=== PATIENT | male | born 1980 | race Caucasian/White ===

== ENCOUNTER 2020-01-05 19:56 | Inpatient (IN) | payer BC ==
[2020-01-05] MEDS ORDERED: ONDANSETRON 4 MG/2 ML VIAL ONE (20:23)
[2020-01-05] MEDS ORDERED: FENTANYL CITR 100 MCG/2 ML ONE ×2 (20:23→20:56)
[2020-01-05 20:40] LABS: Absolute Lymphocytes (CBC) 2.9 K/uL (0.7-4.9); Basophils % 0.7 % (0-1.3); Hematocrit 41.9 % (39.6-49.0); MPV 8.3 fL (7.6-11.3); RBC Red Blood Cell Count 4.86 M/uL (4.33-5.43)
[2020-01-05] MEDS ORDERED: PROMETHAZINE INJ 25 MG/ML AMP ONE (20:55)
[2020-01-05] MEDS ORDERED: NA CHLORIDE 0.9% 1,000 ML ONE (20:56)
[2020-01-05] MEDS ORDERED: HYDROMORPHONE HCL 1 MG/ML INJ ONE (21:28)
--- NOTE | 2020-01-05 21:35 | EDPHYS ---
Physician Documentation [facility] Name: Gustabo Walker Age: 39 yrs Sex: Male : 1980 Arrival Date: 01/05/2020 Time: 19:59 Bed 30 Private MD: ED Physician Max Blake HPI: 01/05 21:14 This 39 yrs old Male presents to ER via Wheelchair with complaints of abdominal pain. tw4 21:15 The patient presents with abdominal pain. Onset: The symptoms/episode began/occurred 5 tw4 year(s) ago, and became worse today. The symptoms do not radiate. Associated signs and symptoms: Pertinent positives: nausea, vomiting, Pertinent negatives:. The symptoms are described as sharp. Modifying factors: The symptoms are alleviated by nothing, the symptoms are aggravated by alcohol. The patient has not experienced similar symptoms in the past. Historical: - Allergies: 20:05 Morphine; jd3 20:05 Sulfa (Sulfonamide Antibiotics); jd3 - Home Meds: 20:05 None [Active]; jd3 - PMHx: 20:05 None; jd3 - PSHx: 20:05 None; jd3 - Immunization history:: Adult Immunizations up to date. - Social history:: Smoking status: Reported history of juuling and/or vaping. ROS: 21:15 Constitutional: Negative for fever, chills, and weight loss, Eyes: Negative for injury, tw4 pain, redness, and discharge, Cardiovascular: Negative for chest pain, palpitations, and edema, Respiratory: Negative for shortness of breath, cough, wheezing, and pleuritic chest pain, Back: Negative for injury and pain, MS/Extremity: Negative for injury and deformity, Skin: Negative for injury, rash, and discoloration, Neuro: Negative for headache, weakness, numbness, tingling, and seizure. 21:15 Abdomen/GI: Positive for abdominal pain, nausea and vomiting, nausea, vomiting, Negative for diarrhea, anorexia, dysphagia, hematemesis, black/tarry stool, rectal pain, rectal bleeding, bowel incontinence. Exam: 21:15 Head/Face: Normocephalic, atraumatic. Chest/axilla: Normal chest wall appearance and tw4 motion. Nontender with no deformity. No lesions are appreciated. Cardiovascular: Regular rate and rhythm with a normal S1 and S2. No gallops, murmurs, or rubs. Normal PMI, no JVD. No pulse deficits. Respiratory: Lungs have equal breath sounds bilaterally, clear to auscultation and percussion. No rales, rhonchi or wheezes noted. No increased work of breathing, no retractions or nasal flaring. 21:15 MS/ Extremity: Pulses equal, no cyanosis. Neurovascular intact. Full, normal range of motion. Neuro: Awake and alert, GCS 15, oriented to person, place, time, and situation. Cranial nerves II-XII grossly intact. Motor strength 5/5 in all extremities. Sensory grossly intact. Cerebellar exam normal. Normal gait. 21:15 Constitutional: The patient appears in obvious distress, severely distressed. 21:15 Abdomen/GI: Inspection: abdomen appears normal, Bowel sounds: diminished, Palpation: moderate abdominal tenderness, in the epigastric area. Vital Signs: 20:05 BP 158 / 85; Pulse 87; Resp 22 S; Temp 98.3(O); Pulse Ox 100% on R/A; Weight 97.52 kg jd3 (R); Height 6 ft. 1 in. (185.42 cm) (R); Pain 10/10; 21:00 BP 130 / 91; Pulse 83; Resp 24; Pulse Ox 100% on R/A; vc 21:59 BP 135 / 77; Pulse 71; Resp 20; Pulse Ox 97% on R/A; vc 23:13 Pulse 77; Resp 18; Pulse Ox 96% on R/A; mg2 23:56 BP 147 / 74; Pulse 69; Resp 18; Pulse Ox 98% on R/A; mg2 00:30 BP 123 / 93; Pulse 63; Resp 17 S; Pulse Ox 97% on R/A; jd3 01/05 20:05 Body Mass Index 28.37 (97.52 kg, 185.42 cm) [facility] MDM: 01/05 20:03 Patient medically screened. tw4 23:08 Differential diagnosis: cholecystitis, Cholelithiasis, gastritis, GI Bleed, Hepatitis, tw4 pancreatitis, Peptic Ulcer Disease, Perf. Duodenal Ulcer, Perf. Gastric Ulcer, Peritonitis. Data reviewed: vital signs, nurses notes. Data interpreted: Pulse oximetry: Interpretation: normal. Counseling: I had a detailed discussion with the patient and/or guardian regarding: the historical points, exam findings, and any diagnostic results supporting the discharge/admit diagnosis. 01/05 20:11 Order name: CBC with Diff; Complete Time: 21:13 [facility] 01/05 21:13 Interpretation: Normal except: WBC 13.6. [facility] 01/05 20:11 Order name: Creatinine for Radiology; Complete Time: 23:07 [facility] 01/05 23:08 Interpretation: Within normal limits: CRE 1.09. [facility] 01/05 20:11 Order name: Hepatic Function; Complete Time: 23:07 [facility] 01/05 23:07 Interpretation: Normal except: AST 400; ALT 128; GLOB 3.7; A/G 1.0. [facility] 01/05 20:11 Order name: Lipase; Complete Time: 23:07 [facility] 01/05 23:07 Interpretation: Normal except: LIP 68. [facility] 00:29 Order name: Basic Metabolic Panel [facility] 00:29 Order name: Basic Metabolic Panel [facility] 01/05 20:11 Order name: US Abdomen Limited [facility] 01/05 20:11 Order name: CT Abd/Pelvis - IV Contrast Only [facility] 00:30 Order name: Lipase [facility] 00:30 Order name: Lipase [facility] 00:30 Order name: Liver (Hepatic) Function [facility] 00:30 Order name: Liver (Hepatic) Function [facility] 00:30 Order name: CBC with Automated Diff [facility] 00:31 Order name: CBC with Automated Diff [facility] 01/05 20:11 Order name: IV Saline Lock; Complete Time: 21:10 [facility] 01/05 20:11 Order name: Labs collected and sent; Complete Time: 21:10 [facility] 01/05 20:11 Order name: NPO; Complete Time: 21:09 [facility] 00:30 Order name: NPO [facility] Administered Medications: 20:30 Drug: Zofran (Ondansetron) 4 mg Route: IVP; Site: right antecubital; vc 22:41 Follow up: Response: Nausea unchanged vc 20:30 Drug: NS 0.9% 1000 ml Route: IV; Rate: 1000 ml; Site: right antecubital; vc 23:57 Follow up: Response: No adverse reaction; IV Status: Completed infusion; IV Intake: mg2 1000ml 20:30 Drug: fentaNYL (PF) 25 mcg Route: IVP; Site: right antecubital; vc 22:41 Follow up: Response: No adverse reaction; Pain is decreased vc 21:00 Drug: Phenergan 12.5 mg Route: IVP; Site: right antecubital; vc 22:40 Follow up: Response: No adverse reaction; Pain is decreased vc 21:00 Drug: fentaNYL (PF) 50 mcg Route: IVP; Site: right antecubital; vc 22:40 Follow up: Response: No adverse reaction; Pain is decreased vc 21:25 Drug: Dilaudid 1 mg Route: IVP; Site: right antecubital; mg2 22:40 Follow up: Response: No adverse reaction; Pain is decreased vc 00:15 Drug: Lactulose 45 grams Volume: 45 ml; Route: PO; mg2 00:34 Follow up: Response: No adverse reaction jd3 Disposition: 01/05/20 23:59 Hospitalization ordered by Steven Duffy for Inpatient Admission. Preliminary diagnosis are Cholecystitis, Constipation. - Bed requested for Telemetry/MedSurg (Inpatient). - Status is Inpatient Admission. jd3 - Condition is Stable. - Problem is new. - Symptoms are unchanged. Signatures: Dispatcher [employer] EDMS Katy Dominguez RN RN Ghanshyam Jaramillo RN RN jd3 Wadley, Terrence, MD MD tw4 Henrique Weathers RN RN mg2 Tana Costa RN RN vc Corrections: (The following items were deleted from the chart) 01/05 21:14 21:13 This 39 yrs old Male presents to ER via Wheelchair with complaints of Chest Pain. tw4 tw4 21:36 21:33 01/05/2020 21:33 Discharged to Home. Impression: Other chest pain; Anxiety tw4 disorder, unspecified. Condition is Stable. Forms are Medication Reconciliation Form, Thank You Letter, Antibiotic Education, Prescription Opioid Use. Follow up: Private Physician; When: Upon discharge from the Emergency Department; Reason: If symptoms return, Recheck today's complaints, Continuance of care, Re-evaluation by your physician. Problem is new. Symptoms have improved. tw4 00:09 01/05 23:59 Hospitalization Ordered by Steven Duffy MD for Inpatient Admission. mw Preliminary diagnosis is Cholecystitis; Constipation. Bed requested for Telemetry/MedSurg (Inpatient). Status is Inpatient Admission. Condition is Stable. Problem is new. Symptoms are unchanged. tw4 00:48 00:09 01/05/2020 23:59 Hospitalization Ordered by Steven Duffy MD for Inpatient jd3 Admission. Preliminary diagnosis is Cholecystitis; Constipation. Bed requested for Telemetry/MedSurg (Inpatient). Status is Inpatient Admission. Condition is Stable. Problem is new. Symptoms are unchanged. mw
--- NOTE | 2020-01-05 21:35 | ER ---
Nurse's Notes [facility] Name: Gustabo Walker Age: 39 yrs Sex: Male : 1980 Arrival Date: 01/05/2020 Time: 19:59 Bed 30 Private MD: Diagnosis: Cholecystitis;Constipation Presentation: 01/05 20:02 Chief complaint: Patient states: "I am having chest pain that has been coming and jd3 going. it is more on my right side actually. I vomited because of the pain.". Coronavirus screen: The patient has NOT traveled to [place] in the past 14 days. The patient has NOT had contact with known and/or suspected case of Coronavirus. Proceed with normal triage procedures. Ebola Screen: Patient negative for fever greater than or equal to 101.5 degrees Fahrenheit, and additional compatible Ebola Virus Disease symptoms. Initial Sepsis Screen: Does the patient meet any 2 criteria? No. Patient's initial sepsis screen is negative. Does the patient have a suspected source of infection? No. Patient's initial sepsis screen is negative. Risk Assessment: Do you want to hurt yourself or someone else? Patient reports no desire to harm self or others. 20:02 Acuity: SAVANA 2 jd3 20:02 Method Of Arrival: Wheelchair jd3 21:57 Onset of symptoms was January 05, 2020 at 17:00. vc Triage Assessment: 20:00 General: Appears in no apparent distress. uncomfortable, Behavior is calm, cooperative, vc appropriate for age. Pain: Denies pain. Cardiovascular: Capillary refill < 3 seconds Patient's skin is warm and dry. Historical: - Allergies: 20:05 Morphine; jd3 20:05 Sulfa (Sulfonamide Antibiotics); jd3 - Home Meds: 20:05 None [Active]; jd3 - PMHx: 20:05 None; jd3 - PSHx: 20:05 None; jd3 - Immunization history:: Adult Immunizations up to date. - Social history:: Smoking status: Reported history of juuling and/or vaping. Screenin:00 Abuse screen: Denies threats or abuse. Nutritional screening: No deficits noted. vc Tuberculosis screening: No symptoms or risk factors identified. Fall Risk None identified. Assessment: 20:00 Pain: Pain radiates to epigastric area Pain began gradually. vc 20:00 General: Appears in no apparent distress. uncomfortable, Behavior is agitated, anxious, vc restless. Neuro: Level of Consciousness is awake, alert, obeys commands, Oriented to person, place, time, situation, Appropriate for age. Cardiovascular: Reports chest pain, nausea, vomiting, Patient's skin is warm and dry. Respiratory: Airway is patent Respiratory effort is even, unlabored, Respiratory pattern is regular, symmetrical. GI: No signs and/or symptoms were reported involving the gastrointestinal system. : No signs and/or symptoms were reported regarding the genitourinary system. EENT: No signs and/or symptoms were reported regarding the EENT system. Derm: Skin temperature is warm. Musculoskeletal: Circulation, motion, and sensation intact. Range of motion: intact in all extremities. 21:00 Reassessment: Patient and/or family updated on plan of care and expected duration. Pain vc level reassessed. Patient is alert, oriented x 3, equal unlabored respirations, skin warm/dry/pink. Patient states symptoms have not improved. 22:02 Reassessment: Patient and/or family updated on plan of care and expected duration. Pain vc level reassessed. Patient states feeling better. Vital Signs: 20:05 BP 158 / 85; Pulse 87; Resp 22 S; Temp 98.3(O); Pulse Ox 100% on R/A; Weight 97.52 kg j (R); Height 6 ft. 1 in. (185.42 cm) (R); Pain 10/10; 21:00 BP 130 / 91; Pulse 83; Resp 24; Pulse Ox 100% on R/A; vc 21:59 BP 135 / 77; Pulse 71; Resp 20; Pulse Ox 97% on R/A; vc 23:13 Pulse 77; Resp 18; Pulse Ox 96% on R/A; mg2 23:56 BP 147 / 74; Pulse 69; Resp 18; Pulse Ox 98% on R/A; mg2 00:30 BP 123 / 93; Pulse 63; Resp 17 S; Pulse Ox 97% on R/A; jd3 01/05 20:05 Body Mass Index 28.37 (97.52 kg, 185.42 cm) [facility] ED Course: 01/05 19:57 EKG done, by ED staff, reviewed by Max Blake MD. bb 19:59 Patient arrived in ED. cl3 20:00 Patient has correct armband on for positive identification. Placed in gown. Side rails vc up X 1. equipment monitor phototypesetting on. Pulse ox on. NIBP on. 20:03 Max Blake MD is Attending Physician. tw4 20:04 Triage completed. jd3 20:06 Arm band placed on. jd3 20:17 Tana Costa, RN is Primary Nurse. vc 20:17 Radiology exam delayed due to lab results not completed at this time. (BUN/Creatinine). vm2 20:30 Inserted saline lock: 22 gauge in right antecubital area, using aseptic technique. vc Blood collected. 20:30 Patient maintains SpO2 saturation greater than 95% on room air. vc 21:00 Radiology exam delayed due to lab results not completed at this time. (BUN/Creatinine). vm2 21:04 US Abdomen Limited In Process Unspecified. EDMS 21:49 Radiology exam delayed due to lab results not completed at this time. (BUN/Creatinine). nj 22:08 Radiology exam delayed due to lab results not completed at this time. (BUN/Creatinine). vm2 22:42 Notified ED physician of a critical lab result(s). AST of 400. Dr Blake notified. bb 23:00 CT Abd/Pelvis - IV Contrast Only In Process Unspecified. EDMS 23:56 No provider procedures requiring assistance completed. mg2 23:58 Steven Duffy MD is Hospitalizing Provider. tw4 00:32 Patient admitted, IV remains in place. jd3 Administered Medications: 01/05 20:30 Drug: Zofran (Ondansetron) 4 mg Route: IVP; Site: right antecubital; vc 22:41 Follow up: Response: Nausea unchanged vc 20:30 Drug: NS 0.9% 1000 ml Route: IV; Rate: 1000 ml; Site: right antecubital; vc 23:57 Follow up: Response: No adverse reaction; IV Status: Completed infusion; IV Intake: mg2 1000ml 20:30 Drug: fentaNYL (PF) 25 mcg Route: IVP; Site: right antecubital; vc 22:41 Follow up: Response: No adverse reaction; Pain is decreased vc 21:00 Drug: Phenergan 12.5 mg Route: IVP; Site: right antecubital; vc 22:40 Follow up: Response: No adverse reaction; Pain is decreased vc 21:00 Drug: fentaNYL (PF) 50 mcg Route: IVP; Site: right antecubital; vc 22:40 Follow up: Response: No adverse reaction; Pain is decreased vc 21:25 Drug: Dilaudid 1 mg Route: IVP; Site: right antecubital; mg2 22:40 Follow up: Response: No adverse reaction; Pain is decreased vc 00:15 Drug: Lactulose 45 grams Volume: 45 ml; Route: PO; mg2 00:34 Follow up: Response: No adverse reaction jd3 Intake: 01/05 23:57 IV: 1000ml; Total: 1000ml. mg2 Outcome: 21:33 Discharge ordered by . tw 23:59 Decision to Hospitalize by Provider. tw4 00:31 Admitted to Med/surg accompanied by tech, via wheelchair, room 2, with chart, Report jd3 called to Terri WATKINS Condition: stable Instructed on the need for admit, Demonstrated understanding of instructions. 00:48 Patient left the ED. jchris Signatures: Dispatcher [employer] EDAdri Bunch, RN RN Satya Jacob [facility] Ghanshyam Jaramillo RN RN jd3 Wadley, Terrence, MD MD 4 Henrique Weathers RN RN mg2 Gala Gutierrez Vanessa, RN RN vc
[2020-01-05 22:39] LABS: Albumin 3.7 g/dL (3.4-5.0); Bilirubin Direct 0.1 mg/dL (0-0.2); Bilirubin Total 0.4 mg/dL (0.2-1.0); Protein, Total 7.4 g/dL (6.4-8.2)
--- NOTE | 2020-01-05 23:42 | RAD REPORT ---
EXAM DESCRIPTION: US - Abdomen Exam Limited - 01/05/2020 9:03 pm CLINICAL HISTORY: ABD PAIN COMPARISON: Abdomen Pelvis W Contrast dated 01/05/2020 FINDINGS: The gallbladder demonstrates several gallstones in the gallbladder neck. The gallbladder a ppears distended. No pericholecystic fluid or gallbladder wall thickening. The common bile duct is no rmal measuring 4 mm. The liver demonstrates no findings of intrahepatic biliary dilatation. IMPRESSION: Gallbladder distention is noted with several gallstones in the region of the gallbladder neck.
[2020-01-06] MEDS ORDERED: LACTULOSE 20 GM/30 ML UCUP ONE (00:10)
[2020-01-06] MEDS ORDERED: MORPHINE 4 MG/ML SYR IV PRN (00:28)
[2020-01-06] MEDS ORDERED: ONDANSETRON 4 MG/2 ML VIAL IV PRN (00:28)
[2020-01-06] MEDS: D5 0.45 NS 1,000 ML IV SCH ×3 (01:58→17:22)
[2020-01-06 02:15] VITALS: BMI 29.0
[2020-01-06] MEDS: HYDROMORPHONE HCL 1 MG/ML INJ IV PRN ×2 (02:40→09:19)
[2020-01-06 07:49] VITALS: O2SAT 98
[2020-01-06 09:45] LABS: Absolute Lymphocytes (CBC) 1.8 K/uL (0.7-4.9); Basophils % 0.5 % (0-1.3); Hematocrit 35.9 % (39.6-49.0); Lymphocytes % 22.1 % (15.3-44.8); MPV 8.4 fL (7.6-11.3); RBC Red Blood Cell Count 4.18 M/uL (4.33-5.43)
[2020-01-06 11:50] LABS: Albumin 3.3 g/dL (3.4-5.0); Bilirubin Total 0.9 mg/dL (0.2-1.0); Potassium 3.9 mmol/L (3.5-5.1); Protein, Total 6.7 g/dL (6.4-8.2)
[2020-01-06 17:30] VITALS: BP 128/70; TEMP 98.2
--- NOTE | 2020-01-06 18:57 | HP ---
Date of Admission: 01/06/2020 Brief History Of Present Illness: Patient is a 39-year-old male with a history of multiple episodes of right upper quadrant abdominal pain beginning many months ago. They were intermittent v ague and not severe on those occasions. They were associated with eating fatty or greasy foods. How ever, he did not require admission on those occasions as he would have an episode of nausea, vomiting , which will give him some mild symptomatic improvement and he would lay in a particular position and the pain would usually resolve in some period of time. However, on the last occasion yesterday, he ate some [place] fries, which could cause significant worsening of the symptoms in the right upper bebe drant. There were sharp, stabbing and unrelenting. They continued to worsen in that area as such, ghassan cherry came to the ER with the above-stated complaints. He has had no sick contacts. No recent travel. No new food exposures by his report. Past Medical History: Significant for hyperlipidemia. Past Surgical History: He has had left elbow surgery. Allergies: TO MORPHINE AND SULFA, WHICH CAUSED A RASH. HE DENIES RECREATIONAL DRUG USE. DOES SMOKE E-CIGARETTES AT THIS POINT. HE DRINKS ALCOHOL RECREATIONALLY LESS THAN 4 BEERS A WEEK. Review of Systems: 10-point review of systems other than HPI, denies. Physical Examination: Vital Signs: At the time of my examination, his BMI is 29. His blood pressure 138/68, pulse of 61, respiratory rate 15, temperature 97.9. General: He is awake, alert, and oriented. Psychiatric: Appropriate conversive. HEENT: Normocephalic. His sclerae are anicteric. His mucosa is moist. Oropharynx is clear. There was no subungual jaundice. Neck: Supple. No JVD. Chest: Normal expansion and excursion. Cardiovascular: Regular rate and rhythm. Pulmonary: Clear to auscultation bilaterally. Abdomen: Soft, nontender, nondistended. No rebound. No guarding. No focal peritonitis. Wu si gn is negative. The patient states that he is currently pain-free since last night. Extremities: No clubbing, cyanosis, or edema. Well-healed surgical scars evident on the left elbow. Skin: Otherwise warm and dry. Laboratory Data: Reveals a white blood cell count 8.3, hemoglobin 12.3, hematocrit of 35.9, platelet count is 194. His neutrophils were normal at 64%. Labs are currently pending. However, his AST on admission was 400, ALT 128, alkaline phosphatase was normal at 72, his lipase was 68. Repeat labs a re currently pending. However, he had imaging performed which included abdominal ultrasound. Abdomi nal ultrasound was read as gallbladder distention noted with several gallstones in the region of the gallbladder neck. There is no pericholecystic fluid or gallbladder wall thickening. The common bile duct is normal measuring 4 mm. The liver demonstrates no findings of intrahepatic biliary ductal di latation. Additionally, he has a CT scan which the current dictation is pending officially as such I am awaiting the final read on this. Assessment And Plan: This is a 39-year-old male who comes in with signs and symptoms of biliary coli c. 1.IV fluid hydration. 2.Antibiotic coverage. 3.I am rechecking his labs and I have discussed the surgical options including laparoscopic possible open cholecystectomy. However, patient states he would like to attempt to pursue non-operative karen gemluc at this point, and we will consider surgery on an elective basis if this is possible. I have stated that he must tolerate diet and hydration prior to being able to be discharged safely from my [facility] and as such, we will await the lab report first. The official dictation from the CT scan a nd if these show significant improvement and he is a candidate for dietary challenge, we will give hi m a diet at this point, see if he tolerates this and as such, we can discharge him with instructions to follow up in my clinic to schedule a laparoscopic cholecystectomy on elective basis should he deci de to pursue that course. I have explained risks, benefits, alternatives the above stated plan, the patient agrees to proceed as indicated. BRENNON/ROSANA Voice ID: [id number]
--- NOTE | 2020-01-08 14:39 | RAD REPORT ---
EXAM DESCRIPTION: Abdomen Pelvis W Contrast CLINICAL HISTORY: Abdominal pain. TECHNIQUE: CT scan of the abdomen and pelvis was performed with oral and intravenous contrast. 5 mm arterial axial images of the abdomen were obtained. 5 mm venous phase axial images of the abdomen and pelvis were obtained along with coronal and sagitta l reformatted images. DOSE OPTIMIZATION: This facility uses dose optimization techniques as appropriate to perform exams, including at least one of the following techniques: 1. Automated exposure control. 2. Adjustment of the mA and/or kV according to patient size (this includes techniques or standardized protocols for targeted exams where dose is matched to the indication/reason for exam, i.e. extremiti es or head). 3. Use of iterative reconstructive technique. INTRAVENOUS CONTRAST: Not documented. Please refer to medical record. COMPARISON: None. FINDINGS: Lung Bases: Normal. Liver: Normal. Spleen: Normal. Pancreas: Normal. Gallbladder: There is mild gallbladder distention. Adrenal Glands: Normal. Kidneys: There is a nonobstructing stone in the midpole of the right kidney measuring 0.8 x 0.6 cm. Retroperitoneal Structures: Normal. Bowel Survey: There is increased stool identified within the ascending, transverse, descending colon. The distal ileum demonstrates stool like material suggesting bowel stasis.. The appendix is unremark able. Uterus and Adnexa: Normal. Prostate Gland: Normal in size. Urinary Bladder: Normal. Peritoneal Cavity: Normal. Mesenteric Structures: Normal. Abdominal Wall: No hernia. Bony Structures: No suspicious lesions. There is severe degenerative disc disease at L5-S1. IMPRESSION: 1. Increased stool within the ascending, transverse, and descending colon. 2. Mild gallbladder distention. Gallbladder ultrasound should be considered to assess for potential c holecystitis. 3. Nonobstructing right renal stone. Electronically signed by: Chuy Walker MD 01/05/2020 11:13 PM FOOD SCIENTIST Due to temporary technical issues with the PACS/Fluency reporting system, reports are being signed by the in house radiologist as a courtesy to ensure prompt reporting. The interpreting radiologist is f ully responsible for the content of the report.
--- NOTE | 2020-01-08 15:40 | EKG ---
Test Date: 2020-01-05 Test Time: 19:57:50 [facility] Manager: OCTAVIANO MEASUREMENT RESULTS: Intervals: Rate: 82 TN: 110 QRSD: 90 QT: 350 QTc: 408 [place]: P: 69 TN: 110 QRS: 63 T: 57 INTERPRETIVE STATEMENTS: Sinus rhythm with short TN Otherwise normal ECG No previous ECG available for comparison Electronically Signed On 01-08-20 15:39:48 INFORMATION SYSTEMS PLANNER by Oli Butcher
== END 2020-01-06 18:12 | disposition home or self-care (01) | DRG 446 ==
LOC: ER 19:56 → 2ND 01-06 00:52
PROVIDERS: ADMIT Surgery; ATTEND Surgery
DX: K80.50 Calculus of bile duct without cholangitis or cholecystitis without obstruction (principal)
CPT/HCPCS: 36415; 74177; 76705; 80053; 80076; 83690; 85025; 93005; 96361; 96374; 96375; 99285; J1170; J2405; J2550; J3010; J7030; J7799; Q9967

== ENCOUNTER 2020-01-22 09:35 | Day surgery (SDC) | payer BC ==
[2020-01-22] MEDS ORDERED: Ringers Lactate 1,000 ML IV ONE (10:02)
[2020-01-22] MEDS: CEFOXITIN/SWI 1gm 1 GM/10 ML SYR ONE ×2 (12:01→12:24)
[2020-01-22] MEDS ORDERED: propofoL 200 MG/20 ML VIAL IV ONE (12:01)
[2020-01-22] MEDS ORDERED: FENTANYL CITR 100 MCG/2 ML ONE (12:01)
[2020-01-22] MEDS ORDERED: MIDAZOLAM HCL 2 MG/2 ML INJ ONE (12:01)
[2020-01-22] MEDS ORDERED: LIDOCAINE 1% MPF 5 ML VIAL ONE (12:01)
[2020-01-22] MEDS ORDERED: ROCURONIUM 50 MG/5 ML VIAL IV ONE (12:02)
[2020-01-22] MEDS ORDERED: BUPIVACA 0.25%/EPI 0.0005% MDV 50 ML VIAL ONE (12:11)
[2020-01-22] MEDS ORDERED: KETOROLAC 30 MG/ML INJ ONE (12:33)
[2020-01-22] MEDS ORDERED: dexAMETHasone 10 MG/ML VIAL ONE (12:36)
[2020-01-22] MEDS ORDERED: ONDANSETRON 4 MG/2 ML VIAL ONE (12:37)
[2020-01-22] MEDS ORDERED: NEOSTIGMINE 1 MG/ML -5 ML ONE (12:46)
[2020-01-22] MEDS ORDERED: GLYCOPYRROLATE 0.2 MG/ML SYR ONE ×2 (12:46→14:44)
--- NOTE | 2020-01-22 13:06 | P.OP ---
Preoperative diagnosis: Cholecystitis Postoperative diagnosis: Cholecystitis Primary procedure: Laparoscopic Cholecystectomy Anesthesia: GETA + Local Estimated blood loss: <5cc Specimen: Gallbladder Findings: Cholecystitis Complications: None Transferred to: Recovery Room Condition: Good
[2020-01-22] MEDS: HYDROMORPHONE HCL 1 MG/ML INJ ONE ×2 (13:26→13:31)
[2020-01-22] MEDS ORDERED: MEPERIDINE HCL 25 MG/0.5 ML ONE ×2 (13:47→13:59)
[2020-01-22] MEDS ORDERED: HYDROCODONE/APAP 5/325 MG TAB ONE (14:30)
[2020-01-22] MEDS ORDERED: HYDROCODONE/APAP 5/325 MG TAB PO ONE (14:30)
[2020-01-22 15:35] VITALS: O2SAT 98
[2020-01-22 15:42] VITALS: BP 122/78; TEMP 97.5
--- NOTE | 2020-01-22 20:49 | OP ---
Date of Procedure: 01/22/2020 Surgeon: Steven Duffy MD, Preoperative Diagnosis: Acute on chronic cholecystitis. Postoperative Diagnosis: Acute on chronic cholecystitis. Procedure Performed: Laparoscopic cholecystectomy. Anesthesia: General endotracheal plus local with 0.5% Marcaine with epinephrine. Estimated Blood Loss: Less than 5 cc. Specimens: Gallbladder. Findings: Cholecystitis Complications: None. Condition: Transferred to recovery room in good condition. Procedure In Detail: After informed consent was obtained, patient was brought to the operating room and prepped and draped in the usual sterile fashion. After adequate anesthesia was achieved, a supra umbilical area was anesthetized with 0.25% Marcaine and sharply incised. A 5 mm trocar was introduce d into the abdomen without evidence of complication. Insufflation was obtained to 15 mmHg at this ti me. There was no injury to vital structures upon entry into the abdomen. Additional trocar site cho sen in the epigastrium. This was similarly anesthetized and sharply incised. A 5 mm trocar was intr oduced in the abdomen with no evidence of complication. The umbilical trocar was then upsized to a 1 2 mm under direct visualization without evidence of complication. Additional trocar sites in the rig ht upper quadrant. This was similarly anesthetized and sharply incised. A 5 mm trocar was introduce d in the abdomen without evidence of complication. The patient was now positioned head up, right-chris e up position. A ratcheted grasper was used to grasp the patient's gallbladder and dissected down to the Simba pouch. After dissection down near the Simba pouch, 2 structures were identified. I dentified both the cystic duct and cystic artery. These were doubly ligated on the proximal side and singly on the distal side with titanium Endo Clips. These were both ligated after the critical view of safety was obtained. At this point, the gallbladder was removed from the hepatic fossa with mini mal and placed in EndoCatch bag and removed from the umbilical trocar and sent off for pathologic exa mination. The hepatic bed was then inspected one last time, fulgurated one last time into small area without bleeding, but had red discoloration. After it was fulgurated appropriately, the area was co piously irrigated multiple times and completely clear. The clips were found to be in good anatomic p osition. After suctioning out all the effluent, the patient was positioned in neutral position. Aft er reinsufflation was obtained, the gallbladder was sent off for pathologic examination. The umbilic al trocar was removed. The umbilical trocar site was closed using a Shola-Jennifer suture passer wi th 0 Vicryl in interrupted fashion. Good approximation of tissues. All remaining trocars were then removed under direct visualization without evidence of complication. All skin incisions were copious ly irrigated and closed with a 4-0 Monocryl in a running fashion. Dermabond placed over top. The pa tient tolerated the procedure without evidence of complication, transferred to PACU in good condition . All counts were correct at the end of the case. BRENNON/ROSANA Voice ID: [id number] Report ID: [id number]
== END 2020-01-22 15:40 | disposition home or self-care (01) ==
LOC: OR 09:35
PROVIDERS: ATTEND Surgery
PROC: 0FT44ZZ Resection of Gallbladder, Percutaneous Endoscopic Approach (ICD-10-PCS; principal; 2020-01-22 12:00)
DX: K80.12 Calculus of gallbladder with acute and chronic cholecystitis without obstruction (principal); E78.5 Hyperlipidemia, unspecified; F17.290 Nicotine dependence, other tobacco product, uncomplicated; Z88.2 Allergy status to sulfonamides; Z88.6 Allergy status to analgesic agent
CPT/HCPCS: 88304; 47562; J2704; J2250; J3010; J1100; J2175 ×2; J1170; J2710; J7120; J2405

== ENCOUNTER 2020-03-26 11:14 | Day surgery (SDC) | payer BC ==
[2020-03-27] MEDS ORDERED: Ringers Lactate 1,000 ML IV ONE (08:40)
[2020-03-27] MEDS ORDERED: LIDOCAINE 1% MPF 2 ML AMPULE ONE (09:26)
[2020-03-27] MEDS ORDERED: propofoL 200 MG/20 ML VIAL IV ONE (09:26)
[2020-03-27] MEDS ORDERED: EPINEPHRINE/PF 1 MG/ML AMP ONE (09:36)
--- NOTE | 2020-03-27 09:45 | ENDO RPT ---
[address], [address] EGD PROCEDURE REPORT EXAM DATE: 03/27/2020 PATIENT NAME: Gustabo Walker MR#: [id number] BIRTHDATE: 1980 ATTENDING: Steven Duffy DR STATUS: outpatient BOND TRADER: Reg[facility] Dominguez [facility], Bárbara Smith RN, and Rose Owens RN INDICATIONS: The patient is a 39 yr old Male here for an EGD due to mid epigastric abdominal pain PROCEDURE PERFORMED: EGD with biopsy for H. pylori MEDICATIONS: Per Anesthesia. TOPICAL ANESTHETIC: none CONSENT: The patient understands the risks and benefits of the procedure and understands that these risks include, but are not limited to: sedation, allergic reaction, infection, perforation and/or bleeding. Alternative means of evaluation and treatment include, among others: physical exam, x-rays, and/or surgical intervention. The patient elects to proceed with this endoscopic procedure. DESCRIPTION OF PROCEDURE: During intra-op preparation period all mechanical medical equipment was checked for proper function. Hand hygiene and appropriate measures for infection prevention was taken. Procedure, possible complications, and alternatives including but not limited to the possibility of bleeding, perforation, tear, infection, sepsis, need for surgery, need for blood transfusion, and anesthesia related complications were explained to the patient. After the risks, benefits and alternatives of the procedure were thoroughly explained, Informed consent was verified, confirmed and timeout was successfully executed by the treatment team. The patient was placed in the left lateral position. The patient was anesthetized with topical anesthesia. Through the anesthetized oropharyngeal area, the scope was passed without any difficulty. The EG-[id number] ([id number]) endoscope was introduced through the mouth and advanced to the second portion of the duodenum. Retroflexed views revealed no abnormalities. The gastroscope was then slowly withdrawn and removed. Mild gastritis was found in the body and the antrum of the stomach. A biopsy for H. pylori was taken. Duodenitis was found in the bulb and descending duodenum. A biopsy for H. pylori was taken. Normal GE junction was noted. With standard forceps, a biopsy was obtained and sent to pathology. ADVERSE EVENTS: There were no complications. IMPRESSIONS: 1. Mild gastritis was found in the body and the antrum of the stomach 2. Duodenitis was found in the bulb and descending duodenum 3. Normal GE junction 42 cm from incisors RECOMMENDATIONS: 1. acid suppression therapy 2. anti-reflux regimen 3. await biopsy results 4. avoid NSAIDS 5. follow-up: office 2 week(s) 6. follow-up of helicobacter pylori status, treat if indicated REPEAT EXAM: Steven Duffy DR eSigned: Steven Duffy DR 03/27/2020 9:45 AM cc: CPT CODES: ICD9 CODES: PATIENT NAME: Gustabo Walker MR#: [id number]
[2020-04-02] MEDS ORDERED: propofoL 200 MG/20 ML VIAL IV ONE (07:08)
== END 2020-03-27 10:30 | disposition home or self-care (01) ==
LOC: DS 11:14 → OR 11:14 → DS 03-27 10:30
PROVIDERS: ATTEND Surgery
PROC: 0DB98ZX Excision of Duodenum, Via Natural or Artificial Opening Endoscopic, Diagnostic (ICD-10-PCS; principal; 2020-03-26)
PROC: 0DB68ZX Excision of Stomach, Via Natural or Artificial Opening Endoscopic, Diagnostic (ICD-10-PCS; 2020-03-26)
PROC: 0DB48ZX Excision of Esophagogastric Junction, Via Natural or Artificial Opening Endoscopic, Diagnostic (ICD-10-PCS; 2020-03-26)
DX: K29.70 Gastritis, unspecified, without bleeding (principal); Z11.59 Encounter for screening for other viral diseases; K29.80 Duodenitis without bleeding; K21.0 Gastro-esophageal reflux disease with esophagitis; Z88.2 Allergy status to sulfonamides; Z88.6 Allergy status to analgesic agent

== ENCOUNTER 2021-06-18 08:54 | Emergency (ER) | payer BC ==
[2021-06-18 10:03] LABS: Absolute Lymphocytes (CBC) 1.7 K/uL (0.7-4.9); Basophils % 1.3 % (0-1.3); Hematocrit 39.3 % (39.6-49.0); RBC Red Blood Cell Count 4.44 M/uL (4.33-5.43)
[2021-06-18 10:27] LABS: ALT/SGPT 112 U/L (12-78); AST/SGOT 40 U/L (15-37); Albumin 3.9 g/dL (3.4-5.0); Alkaline Phosphatase 85 U/L (45-117); BUN Blood Urea Nitrogen 19 mg/dL (7-18); Bicarbonate 30 mmol/L (21-32); Bilirubin Direct 0.1 mg/dL (0-0.2); Bilirubin Total 0.5 mg/dL (0.2-1.0); Glucose Level 79 mg/dL (74-106); Magnesium 2.1 mg/dL (1.8-2.4); NT PRO-BNP 13 pg/mL (<125); Potassium 4.5 mmol/L (3.5-5.1); Protein, Total 7.3 g/dL (6.4-8.2); Sodium Level 141 mmol/L (136-145); Troponin (Emerg Dept Use Only) < 0.02 ng/mL (0.0-0.045)
--- NOTE | 2021-06-18 11:06 | RAD REPORT ---
EXAM DESCRIPTION: RAD - Chest Single View - 06/18/2021 10:51 am CLINICAL HISTORY: PALPITATIONS COMPARISON: No comparisons FINDINGS: No evidence of edema or pneumonia. The heart size is within normal limits.No acute osseous abnormality. No significant pleural effusions or pneumothorax. IMPRESSION: No acute cardiopulmonary disease.
--- NOTE | 2021-06-18 12:13 | EDPHYS ---
Physician Documentation [facility] Name: Gustabo Walker Age: 40 yrs Sex: Male : 1980 Arrival Date: 06/18/2021 Time: 08:55 Bed 11 Private MD: None, None ED Physician Jacob Liu HPI: 06/18 09:47 This 40 yrs old Male presents to ER via Unassigned with complaints of kdr Palpitations. 09:47 The patient presents with a history of irregular heart beat, heart skipping beats. kdr 10:01 Context: The symptoms occur at rest, States that his symptoms get better with exercise. kdr Onset: The symptoms/episode began/occurred gradually, 2 month(s) ago. Duration: The patient or guardian reports multiple episodes, that are intermittent, that wax and wane, with no pattern, The patient states that this has been ongoing for the last 2 months. He has not had an official evaluation however he was seen at [facility] and diagnosed with anxiety. Modifying factors: The symptoms are aggravated by nothing. The symptoms are alleviated by Exercising. Associated signs and symptoms: Pertinent positives: anxiety, lightheadedness, Occasional diaphoresis. Severity of symptoms: At their worst the symptoms were mild moderate just prior to arrival, in the emergency department the symptoms have improved mildly. The patient has experienced similar episodes in the past, multiple times, chronically, but today's symptoms are worse. The patient has not recently seen a physician. Historical: - Allergies: 09:35 Morphine; aa5 09:35 Sulfa (Sulfonamide Antibiotics); aa5 - Home Meds: 09:35 testosterone [Active]; aa5 - PMHx: 09:35 low testosterone; aa5 - PSHx: 09:35 Cholecystectomy; aa5 - Immunization history:: Adult Immunizations unknown, . - Social history:: Smoking status: Patient denies any tobacco usage or history of. ROS: 10:01 Constitutional: Negative for fever, chills, and weight loss, Eyes: Negative for injury, kdr pain, redness, and discharge, ENT: Negative for injury, pain, and discharge, Neck: Negative for injury, pain, and swelling, Respiratory: Negative for shortness of breath, cough, wheezing, and pleuritic chest pain, Abdomen/GI: Negative for abdominal pain, nausea, vomiting, diarrhea, and constipation, Back: Negative for injury and pain, : Negative for injury, bleeding, discharge, and swelling, MS/Extremity: Negative for injury and deformity, Skin: Negative for injury, rash, and discoloration, Neuro: Negative for headache, weakness, numbness, tingling, and seizure activity. Psych: Negative for depression, anxiety, suicide ideation, homicidal ideation, and hallucinations, Allergy/Immunology: Negative for hives, rash, and allergies, Endocrine: Negative for neck swelling, polydipsia, polyuria, polyphagia, and marked weight changes, Hematologic/Lymphatic: Negative for swollen nodes, abnormal bleeding, and unusual bruising. 10:01 Cardiovascular: Positive for palpitations, Negative for chest pain, edema, orthopnea, paroxysmal nocturnal dyspnea. Exam: 10:01 Constitutional: This is a well developed, well nourished patient who is awake, alert, kdr and in no acute distress. Head/Face: Normocephalic, atraumatic. Eyes: Pupils equal round and reactive to light, extra-ocular motions intact. Lids and lashes normal. Conjunctiva and sclera are non-icteric and not injected. Cornea within normal limits. Periorbital areas with no swelling, redness, or edema. Neck: Trachea midline, no thyromegaly or masses palpated, and no cervical lymphadenopathy. Supple, full range of motion without nuchal rigidity, or vertebral point tenderness. No Meningismus. Chest/axilla: Normal chest wall appearance and motion. Nontender with no deformity. No lesions are appreciated. Cardiovascular: Regular rate and rhythm with a normal S1 and S2. No gallops, murmurs, or rubs. Normal PMI, no JVD. No pulse deficits. Respiratory: Lungs have equal breath sounds bilaterally, clear to auscultation and percussion. No rales, rhonchi or wheezes noted. No increased work of breathing, no retractions or nasal flaring. Abdomen/GI: Soft, non-tender, with normal bowel sounds. No distension or tympany. No guarding or rebound. No evidence of tenderness throughout. Back: No spinal tenderness. No costovertebral tenderness. Full range of motion. Skin: Warm, dry with normal turgor. Normal color with no rashes, no lesions, and no evidence of cellulitis. MS/ Extremity: Pulses equal, no cyanosis. Neurovascular intact. Full, normal range of motion. Neuro: Awake and alert, GCS 15, oriented to person, place, time, and situation. Cranial nerves II-XII grossly intact. Motor strength 5/5 in all extremities. Sensory grossly intact. Cerebellar exam normal. Normal gait. Psych: Awake, alert, with orientation to person, place and time. Behavior, mood, and affect are within normal limits. 12:22 ECG was reviewed by the Attending Physician. kdr Vital Signs: 09:35 BP 145 / 78; Pulse 64; Resp 16 S; Temp 98.2(TE); Pulse Ox 97% on R/A; aa5 13:47 BP 145 / 91; Pulse 56; Resp 20; Pulse Ox 100% on R/A; kg MDM: 10:01 Data reviewed: vital signs, nurses notes, lab test result(s), EKG, radiologic studies. kdr Counseling: I had a detailed discussion with the patient and/or guardian regarding: the historical points, exam findings, and any diagnostic results supporting the discharge/admit diagnosis, lab results, radiology results, the need for outpatient follow up. 12:13 Patient medically screened. [facility] 06/18 09:47 Order name: Basic Metabolic Panel; Complete Time: 11: kdr 06/18 09:47 Order name: CBC with Diff; Complete Time: : [facility] 06/18 09:47 Order name: LFT's; Complete Time: : kdr 06/18 09:47 Order name: Magnesium; Complete Time: 11: kdr 06/18 09:47 Order name: NT PRO-BNP; Complete Time: : [facility] 06/18 09:47 Order name: PT-INR; Complete Time: 11: kdr 06/18 09:47 Order name: Troponin (emerg Dept Use Only); Complete Time: 11: kdr 06/18 09:47 Order name: XRAY Chest (1 view); Complete Time: : kdr 06/18 09:47 Order name: EKG; Complete Time: :48 kdr 06/18 09:47 Order name: EKG - Nurse/Tech; Complete Time: 11: kdr 06/18 09:47 Order name: IV Saline Lock; Complete Time: 11: kdr 06/18 09:47 Order name: Labs collected and sent; Complete Time: 11: kdr 06/18 09:47 Order name: O2 Per Protocol; Complete Time: kdr 06/18 09:47 Order name: O2 Sat Monitoring; Complete Time: : kdr EC:22 Rate is 71 beats/min. Rhythm is regular, Sinus Rhythm with No ectopy. QRS Eloy is kdr Normal. MA interval is normal. QRS interval is normal. Clinical impression: NSR w/ Non-specific ST/T Changes and The repolarization. Administered Medications: No medications were administered Disposition Summary: 06/18/21 12:13 Discharge Ordered Location: Home kdr Problem: an ongoing problem kdr Symptoms: have improved kdr Condition: Stable kdr Diagnosis - Palpitations kdr Followup: kdr - With: Private Physician - When: 2 - 3 days - Reason: If symptoms return, Further diagnostic work-up, Recheck today's complaints, Continuance of care, Re-evaluation by your physician Followup: kdr - With: Abisai Perez MD - When: 2 - 3 days - Reason: If symptoms return, Further diagnostic work-up, Recheck today's complaints, Continuance of care, Re-evaluation by your physician Discharge Instructions: - Discharge Summary Sheet kdr - Palpitations, [id number] kdr Forms: - Medication Reconciliation Form kdr - Thank You Letter kdr Signatures: Dispatcher [employer] EDMS Damaris Landaverde, BILINGUAL MEDICAL ASSISTANT-C SOFI-Jacob Valle MD MD kdr Krupa Harvey RN RN aa5 Yanni Medrano RN RN kg Corrections: (The following items were deleted from the chart) 10:57 09:35 Home Meds: testosterone; aaRebecca aa5
--- NOTE | 2021-06-18 12:13 | ER ---
Nurse's Notes [facility] Name: Gustabo Walker Age: 40 yrs Sex: Male : 1980 Arrival Date: 06/18/2021 Time: 08:55 Bed 11 Private MD: None, None Diagnosis: Palpitations Presentation: 06/18 09:35 Chief complaint: Patient states: intermittent palpitations x months, pt reports aa5 palpitations are becoming more frequent and lasting longer. Coronavirus screen: At this time, the client does not indicate any symptoms associated with coronavirus-19. Ebola Screen: Patient negative for fever greater than or equal to 101.5 degrees Fahrenheit, and additional compatible Ebola Virus Disease symptoms. Initial Sepsis Screen: Does the patient meet any 2 criteria? No. Patient's initial sepsis screen is negative. Does the patient have a suspected source of infection? No. Patient's initial sepsis screen is negative. Risk Assessment: Do you want to hurt yourself or someone else? Patient reports no desire to harm self or others. Onset of symptoms was 2020. 09:35 Acuity: SAVANA 3 aa5 09:35 Method Of Arrival: Ambulatory aa5 Historical: - Allergies: 09:35 Morphine; aa5 09:35 Sulfa (Sulfonamide Antibiotics); aa5 - Home Meds: 09:35 testosterone [Active]; aa5 - PMHx: 09:35 low testosterone; aa5 - PSHx: 09:35 Cholecystectomy; aa5 - Immunization history:: Adult Immunizations unknown, . - Social history:: Smoking status: Patient denies any tobacco usage or history of. Screenin:49 Abuse screen: Denies threats or abuse. Denies injuries from another. Nutritional kg screening: No deficits noted. Tuberculosis screening: No symptoms or risk factors identified. Fall Risk None identified. Assessment: 13:48 General: Appears in no apparent distress. Pain: Denies pain. Cardiovascular: Reports. kg 13:49 Cardiovascular: Reports Palpitations Heart tones S1 S2 Capillary refill < 3 seconds. kg Vital Signs: 09:35 BP 145 / 78; Pulse 64; Resp 16 S; Temp 98.2(TE); Pulse Ox 97% on R/A; aa5 13:47 BP 145 / 91; Pulse 56; Resp 20; Pulse Ox 100% on R/A; kg ED Course: 08:55 Patient arrived in ED. as 08:55 None, None is Private Physician. as 08:56 Jacob Liu MD is Attending Physician. kdr 09:35 Arm band placed on. aa5 09:37 EKG completed in triage. Results shown to MD. aa5 09:40 Patient placed in waiting room, Patient notified of wait time. aa5 10:56 Triage completed. aa5 11:07 XRAY Chest (1 view) In Process Unspecified. EDMS 12:12 Abisai Perez MD is Referral Physician. kdr 12:39 Yanni Medrano, RN is Primary Nurse. kg 13:47 IV discontinued, intact, bleeding controlled, No redness/swelling at site. Pressure kg dressing applied. 13:49 Fall risk band placed. kg 13:49 No provider procedures requiring assistance completed. kg Administered Medications: No medications were administered Outcome: 12:13 Discharge ordered by . kdr 13:50 Patient left the ED. kg Signatures: Dispatcher [employer] EDNE Jacob Liu MD MD kdr Val Haines Audri, RN RN aa5 Yanni Medrano, RN RN kg Corrections: (The following items were deleted from the chart) 10:57 09:35 Home Meds: testosterone; aa5 aa5
[2021-06-18 13:58] VITALS: TEMP 98.2
[2021-06-18 14:00] VITALS: BP 145/91; O2SAT 100
== END 2021-06-18 13:50 | disposition home or self-care (01) ==
LOC: ER 08:54
DX: R00.2 Palpitations (principal); Z88.2 Allergy status to sulfonamides; Z88.5 Allergy status to narcotic agent
CPT/HCPCS: 36415; 71045; 80048; 80076; 83735; 83880; 84484; 85025; 85610; 93005; 93270; 99282

== ENCOUNTER 2022-10-02 09:34 | Emergency (ER) | payer BC ==
--- OUTSIDE RECORDS SUMMARY | 2022-10-02 09:38 | XMS REPORT | Continuity of Care Document ---
:1980 Author Organization [facility] t Address [address] [place] [address] Dr. Rojas [address] [place] [address] Care Team Providers Name Role Phone TARUN LARA Primary Care Physician Unavailable EVANGELINA MACKAY Attending Clinician Unavailable Evangelina Mackay MD Attending Clinician , Adc Surg Spec Procedure Attending Clinician Unavailable Doctor Unassigned, [place] Attending Clinician Unavailable POLY BHAGAT Attending Clinician Unavailable Calvin Baca Attending Clinician Poly Bhagat MD Attending Clinician TARUN LARA Attending Clinician Unavailable Tarun Lara MD Attending Clinician Francesco Yuan MD Attending Clinician Payers Payer Name Policy Type Policy Number Effective Date Expiration Date S gonzález HIM BCBS BLUE [id number] 2020 ADVANTAGE O 00:00:00 Problems Condition Condition Condition Status Onset Resolution Last Treating Co mments Source Name Details Category Date Date Treatment Clinician Date No known No known Disease Unive rs active active ity of problems problems [place] [facility] Allergies, Adverse Reactions, Alerts Allergy Allergy Status Severity Reaction(s) Onset Inactive Treating Comm ents Source Name Type Date Date Clinician Sulfa Propensi Active Rash Univers (Sulfona ty to 07-10 ity of mide adverse 00:00: [place] Antibiot reaction 00 Medica l ics) s Branch SULFA Drug Active Rash Univers (SULFONA Class 07-10 ity of MIDE 00:00: [place] ANTIBIOT 00 Medical ICS) Branch MORPHINE DRUG Active Rash Univers INGREDI 07-09 ity of 00:00: [place] 00 Medical Branch Morphine Propensi Active Rash Univer s ty to 07-09 ity of adverse 00:00: [place] reaction 00 Medical s Branch Social History Social Habit Start Date Stop Date Quantity Comments Source History of Cigarette Smoker Universi ty of tobacco use [facility] Alcohol intake 2022-09-28 2022-09-28 .86 /d University of 00:00:00 00:00:00 [facility] Exposure to 2022-09-17 2022-09-27 Not sure [facility] SARS-CoV-2 00:00:00 14:45:00 [facility] (event) [place] Tobacco use and 2022-07-10 2022-07-10 Smokeless tobacco Un iversity of exposure 00:00:00 00:00:00 non-user [facility] Sex Assigned At [birth year] Universit y of 00:00:00 00:00:00 [facility] Smoking Status Start Date Stop Date Source Ex-smoker 2022-07-10 00:00:00 2022-07-10 00:00:00 Universi ty of [facility] Medications Ordered Filled Start Stop Current Ordering Indication Dosage Frequency Signature Comments Components Source Medication Medication Date Date Medication? Clinician (SIG) Name Name carvediloL Yes 12.5mg Take 12.5 Univers 12.5 mg 6-13 mg by ity of tablet 00:00: mouth in [place] [address] the Medical morning Branch and 12.5 mg in the evening. Take with meals. carvediloL Yes 12.5mg Take 12.5 Univers 12.5 mg 6-13 mg by ity of tablet 00:00: mouth in [place] [address] the Medical morning Branch and 12.5 mg in the evening. Take with meals. carvediloL Yes 12.5mg Take 12.5 Univers 12.5 mg 6-13 mg by ity of tablet 00:00: mouth in [place] [address] the Medical morning Branch and 12.5 mg in the evening. Take with meals. carvediloL Yes 12.5mg Take 12.5 Univers 12.5 mg 6-13 mg by ity of tablet 00:00: mouth in [place] [address] the Medical morning Branch and 12.5 mg in the evening. Take with meals. carvediloL 2022-0 Yes 12.5mg Take 12.5 Univers 12.5 mg 6-13 mg by ity of tablet 00:00: mouth in [place] [address] the Medical morning [place] and 12.5 mg in the evening. Take with meals. carvediloL 2022-0 Yes 12.5mg Take 12.5 Univers 12.5 mg 6-13 mg by ity of tablet 00:00: mouth in [place] [address] the Medical morning Branch and 12.5 mg in the evening. Take with meals. carvediloL 2022-0 Yes 12.5mg Take 12.5 Univers 12.5 mg 6-13 mg by ity of tablet 00:00: mouth in [place] [address] the [facility] morning [place] and 12.5 mg in the evening. Take with meals. carvediloL 2-0 Yes 12.5mg Take 12.5 Univers 12.5 mg 6-13 mg by ity of tablet 00:00: mouth in [address] morning [place] and 12.5 mg in the evening. Take with meals. carvediloL 1-0 Yes 6.25mg Take 6.25 Univers 6.25 mg 9-16 mg by ity of tablet 00:00: mouth [address] daily with meals. losartan 25 2020-0 Yes 25mg Take 25 mg Univers mg tablet 9-16 by mouth ity of 00:00: daily. [address] carvediloL 1-0 Yes 6.25mg Take 6.25 Univers 6.25 mg 9-16 mg by ity of tablet 00:00: mouth [address] daily with meals. losartan 25 1-0 Yes 25mg Take 25 mg Univers mg tablet 9-16 by mouth ity of 00:00: daily. [address] carvediloL 2021-0 Yes 6.25mg Take 6.25 Univers 6.25 mg 9-16 mg by ity of tablet 00:00: mouth 2 [place] [address] [address] daily with meals. losartan 25 1-0 Yes 25mg Take 25 mg Univers mg tablet 9-16 by mouth ity of 00:00: daily. [place] 00 Medical Branch carvediloL Yes 6.25mg Take 6.25 Univers 6.25 mg 9-16 mg by ity of tablet 00:00: mouth 2 [place] (two) Medical times [place] daily with meals. losartan 25 0 Yes 25mg Take 25 mg Univers mg tablet 9-16 by mouth ity of 00:00: daily. Medical Branch carvediloL Yes 6.25mg Take 6.25 Univers 6.25 mg 9-16 mg by ity of tablet 00:00: mouth 2 [place] (two) Medical times [place] daily with meals. losartan 25 0 Yes 25mg Take 25 mg Univers mg tablet 9-16 by mouth ity of 00:00: daily. Medical Branch carvediloL Yes 6.25mg Take 6.25 Univers 6.25 mg 9-16 mg by ity of tablet 00:00: mouth 2 [place] (two) Medical times [place] daily with meals. losartan 25 Yes 25mg Take 25 mg Univers mg tablet 9-16 by mouth ity of 00:00: daily. Medical Branch carvediloL Yes 6.25mg Take 6.25 Univers 6.25 mg 9-16 mg by ity of tablet 00:00: mouth 2 [place] (two) Medical times [place] daily with meals. losartan 25 0 Yes 25mg Take 25 mg Univers mg tablet 9-16 by mouth ity of 00:00: daily. Medical Branch carvediloL Yes 6.25mg Take 6.25 Univers 6.25 mg 9-16 mg by ity of tablet 00:00: mouth 2 [place] (two) Medical times [place] daily with meals. losartan 25 0 Yes 25mg Take 25 mg Univers mg tablet 9-16 by mouth ity of 00:00: daily. [place] [facility] testosteron Yes by Univer s e cypionate 07-09 [facility] it y of (DEPO-TESTO 13:27: lar route. [place] STERONE IM) 14 [facility] Branch testosteron Yes by Univer s e cypionate 07-09 [facility] it y of (DEPO-TESTO 13:27: lar route. [place] STERONE IM) 14 Medical Branch testosteron Yes by Univer s e cypionate 07-09 [facility] it y of (DEPO-TESTO 13:27: lar route. [place] STERONE IM) 14 Medical Branch testosteron Yes by Univer s e cypionate 07-09 [facility] it y of (DEPO-TESTO 13:27: lar route. [place] STERONE IM) 14 Medical Branch testosteron Yes by Univer s e cypionate 07-09 Intr[facility]cu it y of (DEPO-TESTO 13:27: lar route. [place] STERONE IM) 14 Medical Branch testosteron Yes by Univer s e cypionate 07-09 Intr[facility]cu it y of (DEPO-TESTO 13:27: lar route. [place] STERONE IM) 14 Medical Branch testosteron Yes by Univer s e cypionate 07-09 [facility] it y of (DEPO-TESTO 13:27: lar route. [place] STERONE IM) 14 Medical Branch testosteron Yes by Univer s e cypionate 07-09 [facility] it y of (DEPO-TESTO 13:27: lar route. [place] STERONE IM) 14 Medical Branch anastrozole Yes TAKE 1/2 Un leandro 1 mg tablet 8-09 TABLET BY ity of 00:00: MOUTH AT [place] 00 24 HOURS Medical AND 1/2 Branch TABLET AT 72 HOURS POST WEEKLY INJECTION anastrozole Yes TAKE 1/2 Un leandro 1 mg tablet 8-09 TABLET BY ity of 00:00: MOUTH AT [place] 00 24 HOURS Medical AND 1/2 Branch TABLET AT 72 HOURS POST WEEKLY INJECTION anastrozole Yes TAKE 1/2 Un leandro 1 mg tablet 8-09 TABLET BY ity of 00:00: MOUTH AT [place] 00 24 HOURS Medical AND 1/2 Branch TABLET AT 72 HOURS POST WEEKLY INJECTION anastrozole Yes TAKE 1/2 Un leandro 1 mg tablet 8-09 TABLET BY ity of 00:00: MOUTH AT [place] 00 24 HOURS Medical AND 1/2 Branch TABLET AT 72 HOURS POST WEEKLY INJECTION anastrozole Yes TAKE 1/2 Un leandro 1 mg tablet 8-09 TABLET BY ity of 00:00: MOUTH AT [place] 00 24 HOURS Medical AND 1/2 Branch TABLET AT 72 HOURS POST WEEKLY INJECTION anastrozole 2020-0 Yes TAKE 1/2 Un leandro 1 mg tablet 8-09 TABLET BY ity of 00:00: MOUTH AT [place] [address] 24 HOURS Medical AND 1/2 Branch TABLET AT 72 HOURS POST WEEKLY INJECTION anastrozole 2020-0 Yes TAKE 1/2 Un leandro 1 mg tablet 8-09 TABLET BY ity of 00:00: MOUTH AT [place] [address] 24 HOURS Medical AND 1/2 Branch TABLET AT 72 HOURS POST WEEKLY INJECTION anastrozole 2020-0 Yes TAKE 1/2 Un leandro 1 mg tablet 8-09 TABLET BY ity of 00:00: MOUTH AT [place] [address] 24 HOURS Medical AND 1/2 Branch TABLET AT 72 HOURS POST WEEKLY INJECTION tadalafiL 5 2020-0 Yes 5mg Take 5 mg U nivers mg tablet 8-02 by mouth ity of 00:00: daily. [place] [facility] tadalafiL 5 2020-0 Yes 5mg Take 5 mg U nivers mg tablet 8-02 by mouth ity of 00:00: daily. [place] [facility] Branch tadalafiL 5 2020-0 Yes 5mg Take 5 mg U nivers mg tablet 8-02 by mouth ity of 00:00: daily. [place] [address] Medical Branch tadalafiL 5 2020-0 Yes 5mg Take 5 mg U nivers mg tablet 8-02 by mouth ity of 00:00: daily. [place] [facility] tadalafiL 5 2020-0 Yes 5mg Take 5 mg U nivers mg tablet 8-02 by mouth ity of 00:00: daily. [place] [address] Medical Branch tadalafiL 5 2020-0 Yes 5mg Take 5 mg U nivers mg tablet 8-02 by mouth ity of 00:00: daily. [address] Branch tadalafiL 5 2020-0 Yes 5mg Take 5 mg U nivers mg tablet 8-02 by mouth ity of 00:00: daily. [place] [address] Medical Branch tadalafiL 5 2020-0 Yes 5mg Take 5 mg U nivers mg tablet 8-02 by mouth ity of 00:00: daily. [address] Immunizations Ordered Filled Immunization Date Status Comments [facility] e Immunization Name Name SARS-COV-2 COVID-19 2021-02-26 Completed Unive rsity of MODERNA 12+ YRS 00:00:00 [place] Med ical VACCINE Branch SARS-COV-2 COVID-19 2021-02-26 Completed Unive rsity of MODERNA 12+ YRS 00:00:00 [place] Med ical VACCINE Branch SARS-COV-2 COVID-19 2021-02-26 Completed Unive rsity of MODERNA 12+ YRS 00:00:00 [place] Med ical VACCINE Branch SARS-COV-2 COVID-19 2021-02-26 Completed Unive rsity of MODERNA 12+ YRS 00:00:00 [place] Med ical VACCINE Branch SARS-COV-2 COVID-19 2021-02-26 Completed Unive rsity of MODERNA 12+ YRS 00:00:00 [place] Med ical VACCINE Branch SARS-COV-2 COVID-19 2021-02-26 Completed Unive rsity of MODERNA 12+ YRS 00:00:00 [place] Med ical VACCINE Branch SARS-COV-2 COVID-19 2021-02-26 Completed Unive rsity of MODERNA 12+ YRS 00:00:00 [place] Med ical VACCINE Branch SARS-COV-2 COVID-19 2021-02-26 Completed Unive rsity of MODERNA 12+ YRS 00:00:00 [place] Med ical VACCINE Branch SARS-COV-2 COVID-19 2021-01-30 Completed Unive rsity of MODERNA 12+ YRS 00:00:00 [place] Med ical VACCINE Branch SARS-COV-2 COVID-19 2021-01-30 Completed Unive rsity of MODERNA 12+ YRS 00:00:00 [place] Med ical VACCINE Branch SARS-COV-2 COVID-19 2021-01-30 Completed Unive rsity of MODERNA 12+ YRS 00:00:00 [place] Med ical VACCINE Branch SARS-COV-2 COVID-19 2021-01-30 Completed Unive rsity of MODERNA 12+ YRS 00:00:00 [place] Med ical VACCINE Branch SARS-COV-2 COVID-19 2021-01-30 Completed Unive rsity of MODERNA 12+ YRS 00:00:00 [place] Med ical VACCINE Branch SARS-COV-2 COVID-19 2021-01-30 Completed Unive rsity of MODERNA 12+ YRS 00:00:00 [place] Med ical VACCINE Branch SARS-COV-2 COVID-19 2021-01-30 Completed Unive rsity of MODERNA 12+ YRS 00:00:00 [facility] ical VACCINE Branch SARS-COV-2 COVID-19 2021-01-30 Completed Unive rsity of MODERNA 12+ YRS 00:00:00 [facility] ical VACCINE Branch Vital Signs Vital Name Observation Time Observation Value Comments Source Systolic blood 2022-09-28 14:05:00 130 mm[Hg] Univer sity of pressure [place] [facility] Diastolic blood 2022-09-28 14:05:00 81 mm[Hg] Unive rsity of pressure [place] [facility] Heart rate 2022-09-28 14:05:00 81 /min Universi ty of [place] [facility] Body temperature 2022-09-28 14:05:00 36.83 Katty Univ ersity of [place] [facility] Respiratory rate 2022-09-28 14:05:00 16 /min Univ ersity of [place] [facility] Body height 2022-09-28 14:05:00 188 cm Universi ty of [place] [facility] Body weight 2022-09-28 14:05:00 93.713 kg Universi ty of [place] [facility] BMI 2022-09-28 14:05:00 26.53 kg/m2 Universi ty of [place] [facility] Oxygen saturation in 2022-09-28 14:05:00 97 /min University Arterial blood by [facility] Pulse oximetry Branch Systolic blood 2022-08-03 15:52:00 130 mm[Hg] Univer sity of pressure [place] [facility] Diastolic blood 2022-08-03 15:52:00 74 mm[Hg] Unive rsity of pressure [place] [facility] Heart rate 2022-08-03 15:52:00 61 /min Universi ty of [place] [facility] Body temperature 2022-08-03 15:52:00 36.44 Katty Univ ersity of [place] [facility] Respiratory rate 2022-08-03 15:52:00 18 /min Univ ersity of [place] [facility] Body height 2022-08-03 15:52:00 188 cm [facility]i ty [facility] [place] [facility] Body weight 2022-08-03 15:52:00 91.627 kg Universi ty [facility] [place] [facility] BMI 2022-08-03 15:52:00 25.94 kg/m2 Universi ty of [place] [facility] Oxygen saturation in 2022-08-03 15:52:00 99 /min [facility] Arterial blood by [facility] Pulse oximetry Branch Body height 2022-07-10 14:48:00 185.4 cm [facility] ty [facility] Body weight 2022-07-10 14:48:00 90.719 kg [facility] BMI 2022-07-10 14:48:00 26.39 kg/m2 [facility] Procedures Procedure Date / Time Performing Clinician Source Performed EXTERNAL PROVIDER 2022-08-18 05:01:00 Doctor Unassigned, No [facility] RECORDS Name Medical [place] PATIENT QUESTIONNAIRE 2022-08-03 05:01:00 Doctor Unassigned, No [facility] Name [facility] Encounters Start End Encounter Admission Attending Care Care Encounter Source Date/Time Date/Time Type Type Clinicians Facility Department ID 2022-09-28 2022-09-28 Outpatient R MARY KYA [facility] [id number] Univers 08:00:00 09:29:55 EVANGELINA ity [facility] 2022-09-28 2022-09-28 [facility] 1.2.840.114 [id number] Univers 08:00:00 09:29:55 Visit Rm, Adc Surg Spec Procedure [place] 3 50.1.13.10 ity [facility] [id number] [phone] [address] 2022-08-18 2022-08-18 Orders Doctor SMITH 1.2.840.114 [id number] Univers 00:00:00 00:00:00 Only Unassigned, CH[place] 350.1.13.10 [facility] 4.2.7.2.686 Isiah as [id number] [place] [address] Branch 2022-08-03 2022-08-03 [facility] 1.2.840.114 [id number] Univers 11:30:00 11:30:00 Visit Evangelina OCAMPO 350.1.13.10 i ty of [place] [id number] [facility] 204 [facility] 2022-08-03 2022-08-03 [facility] [id number] Univers 11:30:00 11:07:40 EVANGELINA rodrigues [facility] 2022-08-03 2022-08-03 Orders Doctor SARAH 1.2.840.114 [id number] Univers 00:00:00 00:00:00 Only Unassigned, [place] 350.1.13.10 ity of [place] [facility] 4.2.7.2.686 Isiah as [id number] [address] 2022-07-10 2022-07-10 Outpatient [facility] [id number] Univers 10:00:00 10:04:00 POLY ravi [facility] 2022-07-10 2022-07-10 Office Calvin [place] [facility] 1.2.840.114 [id number] Univers 09:45:00 10:00:00 Visit Poly Bhagat [facility] [id number] ity of [place] 4.2.7.2.686 Isiah as RICARDO?BLEA [id number] Ct ehsan [address] MEDICAL OFFICE BUILDING 2022-07-10 2022-07-10 Outpatient R [facility] [id number] Univers 09:45:00 09:45:00 POLY sandraisabel [facility] 2022-07-10 2022-07-10 Orders Doctor SMITH 1.2.840.114 [id number] Univers 00:00:00 00:00:00 Only Unassigned, [place] 350.1.13.10 ity of [place] [facility] 4.2.7.2.686 Isiah as [id number] [address] 2022-06-16 2022-06-16 Outpatient R KAYLA [facility] [id number] Univers 09:00:00 09:35:55 TARUN rodrigues [facility] 2022-06-16 2022-06-16 Office Kayla [facility] 1.2.840.114 [id number] Univers 09:00:00 09:15:00 Visit [facility] [id number] it y of [place] [facility] 4.2.7.2.686 Isiah as RICARDO?BLEA [id number] Ct ehsan [address] MEDICAL OFFICE [facility] 2022-06-16 2022-06-16 Outpatient R KAYLA [facility] [id number] Univers 09:00:00 09:00:00 TARUN ity of [facility] 2022-04-10 2022-04-10 Telephone [facility] [id number] Univers 00:00:00 00:00:00 Francesco HEALTH 350.1.13.10 it y of [place] 4.2.7.2.686 Isiah as RICARDO?BLEA [id number] [address] OFFICE [facility] 2021-11-25 2021-11-25 Orders Doctor SARAH 1.2.840.114 [id number] Univers 00:00:00 00:00:00 Only Unassigned, [place] 350.1.13.10 ity of [place] [facility] 4.2.7.2.686 Isiah as [id number] [address] 2021-11-18 2021-11-18 Telephone [facility] 1.2.840.114 [id number] Univers 00:00:00 00:00:00 Tarun HEALTH 350.1.13.10 it y of [place] 4.2.7.2.686 Isiah as RICARDO?BLEA [id number] [address] OFFICE [facility] 2021-11-18 2021-11-18 Orders Doctor SARAH 1.2.840.114 [id number] Univers 00:00:00 00:00:00 Only Unassigned, [place] 350.1.13.10 ity of [place] [facility] 4.2.7.2.686 Isiah as [id number] [address] 2021-08-25 2021-08-25 Office [facility] 1.2.840.114 [id number] Univers 16:01:10 16:16:10 Visit Tarun [facility] 350.1.13.10 it y of [place] 4.2.7.2.686 Isiah as Ricardo?Blea [id number] [address] Office [facility] 2021-08-25 2021-08-25 Outpatient R KAYLA [facility] [id number] Univers 16:00:00 16:00:00 TARUN isabel [facility] 2021-08-25 2021-08-25 Orders Doctor SARAH 1.2.840.114 [id number] Univers 00:00:00 00:00:00 Only Unassigned, [place] 350.1.13.10 ity of [place] [facility] 4.2.7.2.686 Isiah as [phone] [address] 2021-07-11 2021-07-11 Outpatient Tigre LARA [facility] [id number] Univers 08:15:00 08:15:00 TARUN [facility] 2021-07-09 2021-07-09 Office [facility] 1.2.840.114 [id number] Univers 13:02:23 13:32:23 Visit [facility] 350.1.13.10 it y of [place] 4.2.7.2.686 Isiah as Ricardo?Blea [phone] Ct ehsan [address] Medical Office Building 2021-07-09 2021-07-09 Outpatient Tigre LARA [facility] [id number] Univers 13:30:00 13:30:00 TARUN rodrigues [facility] 2021-07-09 2021-07-09 Orders Doctor SARAH Cotter.2.840.114 [id number] Univers 00:00:00 00:00:00 Only Unassigned, [place] 350.1.13.10 ity of [place] [facility] 4.2.7.2.686 Isiah as [phone] [address] Results This patient has no known results.
[2022-10-02] MEDS ORDERED: ONDANSETRON 4 MG/2 ML VIAL ONE (11:49)
[2022-10-02] MEDS ORDERED: NA CHLORIDE 0.9% 500 ML ONE (11:49)
[2022-10-02] MEDS ORDERED: HYDROMORPHONE HCL 1 MG/ML INJ ONE (11:49)
[2022-10-02 12:20] LABS: Absolute Lymphocytes (CBC) 1.6 K/uL (0.7-4.9); Hematocrit 46.3 % (39.6-49.0); Lymphocytes % 23.1 % (15.3-44.8); MCV 92.5 fL (80-100); MPV 8.1 fL (7.6-11.3)
[2022-10-02 12:37] LABS: Albumin 3.4 g/dL (3.4-5.0); Bilirubin Total 0.5 mg/dL (0.2-1.0); Potassium 4.7 mmol/L (3.5-5.1); Protein, Total 7.2 g/dL (6.4-8.2)
--- NOTE | 2022-10-02 13:41 | RAD REPORT ---
EXAM DESCRIPTION: US - Scrotum Testicles - 10/02/2022 1:14 pm CLINICAL HISTORY: Testicular pain COMPARISON: None FINDINGS: Right testicle measures 3.9 x 2 x 1.7 centimeters. Echotexture is homogeneous. Normal bloo d flow Left testicle measures 3.8 x 2.4 x 2.3 centimeters. Echotexture is homogeneous. Normal blood flow 3 millimeter right spermatocele. The right epididymis is normal in size and echotexture. Normal blood flow. Left epididymis is enlarged. It does not have increased blood flow. Small to moderate left hydrocele IMPRESSION: Enlargement of the left epididymis without increased blood flow. This likely is the sequ tim of the recent vasectomy. No epididymitis Small to moderate left hydrocele
--- NOTE | 2022-10-02 13:53 | ER ---
Nurse's Notes [facility] Name: Gustabo Walker Age: 41 yrs Sex: Male : 1980 Arrival Date: 10/02/2022 Time: 09:37 Bed 7 Private MD: Diagnosis: Contusion of scrotum and testes;Postprocedural hemorrhage of skin and subcutaneous tissue following other procedure;Hydrocele, unspecified Presentation: 10/02 10:57 Chief complaint: Spouse and/or significant other states: Had vasectomy on 09/28 and has ss had problems ever since. states, "They didn't numb him correctly, so he felt a lot of them pulling, and the incision doesn't looked closed. There is bruising everywhere.". Coronavirus screen: Client denies travel out of the [place] in the last 14 days. Ebola Screen: Patient denies exposure to infectious person. Patient denies travel to an Ebola-affected area in the 21 days before illness onset. Initial Sepsis Screen: Does the patient meet any 2 criteria? No. Patient's initial sepsis screen is negative. Does the patient have a suspected source of infection? No. Patient's initial sepsis screen is negative. Risk Assessment: Do you want to hurt yourself or someone else? Patient reports no desire to harm self or others. Onset of symptoms was September 28, 2022. 10:57 Method Of Arrival: Ambulatory 10:57 Acuity: SAVANA 3 ss Triage Assessment: 11:15 General: Appears uncomfortable, Behavior is cooperative, appropriate for age, anxious. bp Pain: Complains of pain in pelvis. EENT: No deficits noted. Neuro: No deficits noted. Cardiovascular: No deficits noted. Respiratory: No deficits noted. GI: No signs and/or symptoms were reported involving the gastrointestinal system. : Reports pain scrotum. Derm: No deficits noted. Musculoskeletal: No deficits noted. Historical: - Allergies: 11:00 Morphine; ss 11:00 Sulfa (Sulfonamide Antibiotics); ss - Home Meds: 11:00 carvedilol oral [Active]; losartan oral [Active]; ss - PMHx: 11:00 ED; ss - PSHx: 11:00 Cholecystectomy; Vasectomy; ss - Immunization history:: Client reports receiving the 2nd dose of the Covid vaccine. - Social history:: Smoking status: Reported history of juuling and/or vaping. Screenin:15 Abuse screen: Denies threats or abuse. Denies injuries from another. Nutritional bp screening: No deficits noted. Tuberculosis screening: No symptoms or risk factors identified. Fall Risk None identified. Assessment: 11:15 General: SEE TRIAGE NOTE. bp 12:53 Reassessment: US AT B/S. bp 14:31 Reassessment: PT DC HOME. bp Vital Signs: 10:57 BP 142 / 84; Pulse 64; Resp 16; Temp 98.6(TE); Pulse Ox 100% on R/A; Weight 91.63 kg; ss Height 6 ft. 2 in. (187.96 cm); Pain 7/10; 12:54 BP 130 / 69; Pulse 67; Resp 16; Pulse Ox 97% ; bp 14:30 BP 130 / 74; Pulse 57; Resp 16; Pulse Ox 98% ; bp 10:57 Body Mass Index 25.93 (91.63 kg, 187.96 cm) ED Course: 09:37 Patient arrived in ED. as 11:00 Triage completed. ss 11:00 Arm band placed on left wrist. ss 11:03 Kamaljit Davis MD is Attending Physician. wali 11:03 Israel Hahn, ROLAND is Primary Nurse. bp 11:15 Patient has correct armband on for positive identification. Bed in low position. Call bp light in reach. Side rails up X2. 12:05 Inserted saline lock: 20 gauge in right forearm, using aseptic technique. Blood bp collected. 13:16 US Scrotum Testicles In Process Unspecified. EDMS 13:52 Lonnie Bruno MD is Referral Physician. wali 14:31 No provider procedures requiring assistance completed. IV discontinued, intact, bp bleeding controlled, No redness/swelling at site. Pressure dressing applied. Administered Medications: 12:09 Drug: NS 0.9% 1000 ml Route: IV; Rate: 125 ml/hr; Site: right forearm; bp 14:30 Follow up: IV Status: Completed infusion; IV Intake: 1000ml bp 12:09 Drug: Dilaudid (HYDROmorphone) 1 mg Route: IVP; Site: right forearm; bp 14:29 Follow up: Response: No adverse reaction; Pain is decreased bp 12:09 Drug: Zofran (Ondansetron) 4 mg Route: IVP; Site: right forearm; bp 14:29 Follow up: Response: No adverse reaction bp 12:09 Drug: NS 0.9% 500 ml Route: IV; Rate: bolus; Site: right forearm; bp 14:30 Follow up: IV Status: Completed infusion; IV Intake: 500ml bp 14:29 Drug: Cipro (ciprofloxacin) 500 mg Route: PO; bp 14:30 Follow up: Response: No adverse reaction bp Medication: 11:15 VIS not applicable for this client. bp Intake: 14:30 IV: 1000ml; Total: 1000ml. bp 14:30 IV: 500ml; Total: 1500ml. bp Outcome: 13:52 Discharge ordered by . wali 14:31 Discharged to home ambulatory, with family. bp 14:31 Condition: stable 14:31 Discharge instructions given to patient, Instructed on discharge instructions, follow up and referral plans. medication usage, Demonstrated understanding of instructions, follow-up care, medications, Prescriptions given X 3. 14:32 Patient left the ED. bp Signatures: Dispatcher [employer] EDND Kamaljit Davis MD MD cha Martinez, Amelia as Smirch, Shelby, ROLAND RN Israel Penny RN RN bp
--- NOTE | 2022-10-02 13:53 | EDPHYS ---
Physician Documentation [facility] Name: Gustabo Walker Age: 41 yrs Sex: Male : 1980 Arrival Date: 10/02/2022 Time: 09:37 Bed 7 Private MD: ED Physician Kamaljit Davis HPI: 10/02 11:31 This 41 yrs old Male presents to ER via Ambulatory with complaints of Post wali Surgical Pain - vas 09/28, Testicular Swelling. 11:31 The patient presents with scrotal pain, tenderness, that is moderate. Onset: The wali symptoms/episode began/occurred 4 day(s) ago. Modifying factors: The symptoms are alleviated by remaining still, the symptoms are aggravated by movement. Associated signs and symptoms: The patient has no apparent associated signs or symptoms. Severity of symptoms: At their worst the symptoms were mild, moderate, in the emergency department the symptoms are unchanged. The patient has not experienced similar symptoms in the past. Historical: - Allergies: 11:00 Morphine; ss 11:00 Sulfa (Sulfonamide Antibiotics); ss - Home Meds: 11:00 carvedilol oral [Active]; losartan oral [Active]; ss - PMHx: 11:00 ED; ss - PSHx: 11:00 Cholecystectomy; Vasectomy; ss - Immunization history:: Client reports receiving the 2nd dose of the Covid vaccine. - Social history:: Smoking status: Reported history of juuling and/or vaping. ROS: 11:32 Constitutional: Negative for fever, chills, and weight loss, Eyes: Negative for injury, wali pain, redness, and discharge, ENT: Negative for injury, pain, and discharge, Neck: Negative for injury, pain, and swelling, Cardiovascular: Negative for chest pain, palpitations, and edema, Respiratory: Negative for shortness of breath, cough, wheezing, and pleuritic chest pain, Abdomen/GI: Negative for abdominal pain, nausea, vomiting, diarrhea, and constipation, Back: Negative for injury and pain, MS/Extremity: Negative for injury and deformity, Skin: Negative for injury, rash, and discoloration, Neuro: Negative for headache, weakness, numbness, tingling, and seizure, Psych: Negative for depression, anxiety, suicide ideation, homicidal ideation, and hallucinations, Allergy/Immunology: Negative for hives, rash, and allergies, Endocrine: Negative for neck swelling, polydipsia, polyuria, polyphagia, and marked weight changes, Hematologic/Lymphatic: Negative for swollen nodes, abnormal bleeding, and unusual bruising. 11:32 : Positive for testicular pain mons bruising, left groin bruising. Exam: 11:32 Constitutional: This is a well developed, well nourished patient who is awake, alert, wali and in no acute distress. Head/Face: Normocephalic, atraumatic. Eyes: Pupils equal round and reactive to light, extra-ocular motions intact. Lids and lashes normal. Conjunctiva and sclera are non-icteric and not injected. Cornea within normal limits. Periorbital areas with no swelling, redness, or edema. ENT: Nares patent. No nasal discharge, no septal abnormalities noted. Tympanic membranes are normal and external auditory canals are clear. Oropharynx with no redness, swelling, or masses, exudates, or evidence of obstruction, uvula midline. Mucous membranes moist. Neck: Trachea midline, no thyromegaly or masses palpated, and no cervical lymphadenopathy. Supple, full range of motion without nuchal rigidity, or vertebral point tenderness. No Meningismus. Chest/axilla: Normal chest wall appearance and motion. Nontender with no deformity. No lesions are appreciated. Cardiovascular: Regular rate and rhythm with a normal S1 and S2. No gallops, murmurs, or rubs. Normal PMI, no JVD. No pulse deficits. Respiratory: Lungs have equal breath sounds bilaterally, clear to auscultation and percussion. No rales, rhonchi or wheezes noted. No increased work of breathing, no retractions or nasal flaring. Abdomen/GI: Soft, non-tender, with normal bowel sounds. No distension or tympany. No guarding or rebound. No evidence of tenderness throughout. Back: No spinal tenderness. No costovertebral tenderness. Full range of motion. Skin: Warm, dry with normal turgor. Normal color with no rashes, no lesions, and no evidence of cellulitis. MS/ Extremity: Pulses equal, no cyanosis. Neurovascular intact. Full, normal range of motion. Neuro: Awake and alert, GCS 15, oriented to person, place, time, and situation. Cranial nerves II-XII grossly intact. Motor strength 5/5 in all extremities. Sensory grossly intact. Cerebellar exam normal. Normal gait. Psych: Awake, alert, with orientation to person, place and time. Behavior, mood, and affect are within normal limits. 11:32 : CVA tenderness, that is mild, Male external genitalia: Circumcision noted. Bladder: is normal, non-distended, non-tender, Sexual behavior: the patient is not sexually active, not applicable. Vital Signs: 10:57 BP 142 / 84; Pulse 64; Resp 16; Temp 98.6(TE); Pulse Ox 100% on R/A; Weight 91.63 kg; ss Height 6 ft. 2 in. (187.96 cm); Pain 7/10; 12:54 BP 130 / 69; Pulse 67; Resp 16; Pulse Ox 97% ; bp 14:30 BP 130 / 74; Pulse 57; Resp 16; Pulse Ox 98% ; bp 10:57 Body Mass Index 25.93 (91.63 kg, 187.96 cm) ss MDM: 11:03 Patient medically screened. [facility] 11:34 Differential diagnosis: UTI, urinary retention. Data reviewed: vital signs, nurses [facility] notes, lab test result(s), radiologic studies, ultrasound. Data interpreted: work study student: rate is 64 beats/min, rhythm is regular, Pulse oximetry: on room air is 100 %. Counseling: I had a detailed discussion with the patient and/or guardian regarding: lab results, radiology results, the need for outpatient follow up, for definitive care, a urologist. 10/02 11:04 Order name: CBC with Diff; Complete Time: 12:36 [facility] 10/02 11:04 Order name: Comprehensive Metabolic Panel; Complete Time: 13:51 [facility] 10/02 11:30 Order name: US Scrotum Testicles; Complete Time: 13:51 [facility] 10/02 14:05 Order name: Urine Dipstick-Ancillary EDMS 10/02 11:31 Order name: Urine Dipstick-Ancillary (obtain specimen); Complete Time: 12:23 [facility] Administered Medications: 12:09 Drug: NS 0.9% 1000 ml Route: IV; Rate: 125 ml/hr; Site: right forearm; bp 14:30 Follow up: IV Status: Completed infusion; IV Intake: 1000ml bp 12:09 Drug: Dilaudid (HYDROmorphone) 1 mg Route: IVP; Site: right forearm; bp 14:29 Follow up: Response: No adverse reaction; Pain is decreased bp 12:09 Drug: Zofran (Ondansetron) 4 mg Route: IVP; Site: right forearm; bp 14:29 Follow up: Response: No adverse reaction bp 12:09 Drug: NS 0.9% 500 ml Route: IV; Rate: bolus; Site: right forearm; bp 14:30 Follow up: IV Status: Completed infusion; IV Intake: 500ml bp 14:29 Drug: Cipro (ciprofloxacin) 500 mg Route: PO; bp 14:30 Follow up: Response: No adverse reaction bp Disposition Summary: 10/02/22 13:52 Discharge Ordered Location: Home wali Problem: new wali Symptoms: have improved wali Condition: Stable wali Diagnosis - Contusion of scrotum and testes wali - Postprocedural hemorrhage of skin and subcutaneous tissue following other procedure wali - Hydrocele, unspecified wali Followup: wali - With: Private Physician - When: 2 - 3 days - Reason: Recheck today's complaints, Continuance of care, Re-evaluation by your physician Followup: wali - With: - When: 2 - 3 days - Reason: Recheck today's complaints, Re-evaluation by your physician Discharge Instructions: - Discharge Summary Sheet wali - Contusion wali - Hematoma wali - Hematoma, [id number] wali - Scrotal Hematoma wali - Contusion, [id number] wali - Scrotal Swelling wali Forms: - Medication Reconciliation Form wali - Thank You Letter wali - Antibiotic Education wali - Prescription Opioid Use wali Prescriptions: - Ibuprofen 600 mg Oral Tablet - take 1 tablet by ORAL route every 6 hours As needed take with food; 30 tablet; wali Refills: 0, Product Selection Permitted - Tylenol-Codeine #3 300 mg-30 mg Oral - take 2 tablet by ORAL route every 6 hours; 20 tablet; Refills: 0, Product wali Selection Permitted - Cipro 500 mg Oral Tablet - take 1 tablet by ORAL route every 12 hours for 7 days; 14 tablet; Refills: 0, wali Product Selection Permitted Signatures: Dispatcher [employer] Kamaljit Hairston MD MD cha Smirch, Shelby, RN RN ss Israel Hahn RN RN bp
[2022-10-02 14:05] LABS: Urine Blood Negative (Negative); Urine Glucose Negative (Negative); Urine Protein Negative (Negative); Urine Specific Gravity 1.025 (1.005-1.030)
[2022-10-02] MEDS ORDERED: CIPROFLOXACIN HCL 500 MG TAB ONE (14:25)
[2022-10-02 14:37] VITALS: TEMP 98.6
[2022-10-02 14:39] VITALS: BP 130/74; O2SAT 98
== END 2022-10-02 14:32 | disposition home or self-care (01) ==
LOC: ER 09:34
DX: N99.820 Postprocedural hemorrhage of a genitourinary system organ or structure following a genitourinary system procedure (principal); N43.3 Hydrocele, unspecified; S30.22XA Contusion of scrotum and testes, initial encounter; Z88.2 Allergy status to sulfonamides; Z88.5 Allergy status to narcotic agent
CPT/HCPCS: 96361; 85025; 36415; 81003; 80053; 76870; 96375; 96374; 99284; J1170; J7040; J2405